=== PATIENT | female | born 1965 | race Caucasian/White ===

== ENCOUNTER 2016-07-26 11:32 | Emergency (ER) | payer MEDICARE, OTHER ==
[~2016-07-26] VITALS: Ht 170.2 cm; Wt 85.7 kg
[2016-07-26 11:56] VITALS: BP 155/86; PULSE 82; RESP 16; TEMP 99.1; O2SAT 98
[2016-07-26 12:01] LABS: BLOOD, URINE LARGE (NEG); KETONE, URINE TRACE mg/dL (NEG); NITRITE,URINE NEG (NEG)
[2016-07-26 12:08] LABS: GLUCOSE,URINE 1000 OR GREATER mg/dL (NEG)
--- NOTE | 2016-07-26 12:09 | PD ---
HPI Chief Complaint: Complaint Time Seen by Provider: 12:05 Travel History International Travel<30 days: No Contact w/Intl Traveler<30days: No Traveled to known affect area: No History of Present Illness HPI 51-year-old female presents to the emergency department for evaluation of burning with urination, urinary urgency and hematuria for one day. Patient states that she feels as though she may have a urinary tract infection, has had a UTI in the past with similar symptoms. She denies any fever, chills, nausea, vomiting, abdominal pain, back pain, vaginal discharge. She is status post hysterectomy. No other complaints. [facility] Past Medical History Medical History: Denies Significant Hx ?: Not Past Surgical History Hysterectomy: Yes Social History Alcohol Use: No Tobacco Use: Yes Substance Use: Yes (marijuana) Allergies-Medications (Allergen,Severity, Reaction): Coded Allergies: Latex (Verified Allergy, Severe, RASH, 07/26/16) Reported Meds & Prescriptions Reported Meds & Active Scripts Active Keflex (Cephalexin) 500 Mg Cap 500 Mg PO Q12H 7 Days Review of Systems Except as stated in HPI: all other systems reviewed are Neg Physical Exam Narrative GENERAL: Well-nourished and well-developed pleasant patient in no acute distress who is nontoxic appearing. SKIN: Warm and dry. HEAD: Normocephalic and atraumatic. EYES: No injection, drainage, or hyphema noted. PERRLA. EOMI. ENT: No nasal drainage noted. Oropharynx is clear. NECK: Supple and the trachea is midline. CARDIOVASCULAR: Regular rate and rhythm. RESPIRATORY: Breath sounds are equal bilaterally with no accessory muscle use, wheezing, rhonchi, or crackles. GASTROINTESTINAL: Abdomen is soft, non-tender, and nondistended. MUSCULOSKELETAL: No obvious deformities, swelling, cyanosis, or ecchymosis is present throughout the upper and lower extremities. Patient has full range of motion without any signs of neurovascular compromise. BACK: Negative CVA tenderness. NEUROLOGICAL: Awake, alert, and oriented. Normal speech and gait. Cranial nerves are grossly intact. Data Data Last Documented VS Vital Signs Date Time Temp Pulse Resp B/P Pulse Ox O2 Delivery O2 Flow Rate FiO2 07/26/16 11:56 99.1 82 16 155/86 98 Orders Urinalysis - C+S If Indicated (07/26/16 11:33) Urine Culture (07/26/16 11:56) Blood Glucose (07/26/16 12:37) Labs Laboratory Tests Test 07/26/16 11:56 Urine Collection Type CLEAN CATCH Urine Color YELLOW Urine Turbidity CLEAR Urine pH 5.0 Urine Specific [place] 1.030 Urine Protein NEG mg/dL Urine Glucose (UA) 1000 OR GREATER mg/dL Urine Ketones TRACE mg/dL Urine Occult Blood LARGE Urine Nitrite NEG Urine Bilirubin NEG Urine Leukocyte Esterase NEG Urine RBC 100-200 /hpf Urine WBC 20-24 /hpf Urine Squamous Epithelial > 8 /hpf Cells Microscopic Urinalysis Comment CULTURE INDICATED Urine Collection Time 11:56 [facility] Medical Decision Making Medical Screen Exam Complete: Yes Emergency Medical Condition: Yes Differential Diagnosis Cystitis versus urethritis versus dysuria Narrative Course 51-year-old female presents to the emergency department for evaluation of burning with urination and hematuria that began this morning. Patient is afebrile, vital signs are stable. Abdominal examination is benign. Urinalysis has been ordered and is pending. Urinalysis shows 1000 glucosuria, trace ketones, large occult blood, 102 100 red blood cells, 20-24 white blood cells, 8 squamous cell. Fingerstick glucose is 315. Discussed all of these results with the patient. She admits that she used to be on medication for diabetes but over the past year she has been controlling her sugar with diet. States she has been eating poorly over the past 4 days because she has been traveling and this is what is causing her sugar to be elevated. The patient took herself off of all of her diabetes medications and is not interested in taking any medication to control her diabetes. We'll treat her with Keflex for cystitis. Stressed the importance of outpatient follow-up with a PCP. Discussed when to return to the emergency Department. Patient verbalizes understanding and agreement with treatment plan. I discussed the case with my attending physician Dr. Harden who is aware of the patients history, physical examination findings, and treatment plan. Diagnosis Primary Impression: Cystitis Additional Impressions: Hyperglycemia Noncompliance with diabetes treatment Patient Instructions: General Instructions Additional Instructions: Drink plenty of water. Take medication as prescribed with food and a full glass of water. Follow-up with your Primary Care Physician. Return to the ED for any acute worsening of symptoms. Med/Other Pt SpecificInfo: Prescription(s) given Scripts Cephalexin (Keflex)500 Mg [id number] Mg PO Q12H 7 Days Ref 0 Prov:Nito Harden MD 07/26/16 Disposition: 01 DISCHARGE HOME Condition: Stable Kady Kim Jul 26, 2016 12:09
[2016-07-26 12:19] LABS: COMMENT (UR) CULTURE INDICATED; CULTURE IF INDICATED CULTURE INDICATED; METHOD OF COLLECTION CLEAN CATCH; RBC, URINE 100-200 /hpf (0-3); SQUAMOUS EPITHELIAL CELL URINE > 8 /hpf (0-5); URINE COLOR YELLOW (YELLW/STRAW)
[2016-07-26] MEDS ORDERED: CEPH-460 PO (12:54)
== END 2016-07-26 13:10 | disposition home or self-care (01) ==
LOC: PHEFT 11:32
DX: N30.90 Cystitis, unspecified without hematuria (principal); Z91.14 Patient's other noncompliance with medication regimen; E11.65 Type 2 diabetes mellitus with hyperglycemia
CPT/HCPCS: 81001; 87086; 99283

== ENCOUNTER 2016-10-02 12:47 | Emergency (ER) | payer MEDICARE, OTHER ==
[~2016-10-02] VITALS: Ht 170.2 cm; Wt 84.0 kg
[~2016-10-02 12:47] MED LIST: CEPH-460 PO
[2016-10-02 12:51] VITALS: BP 132/94; PULSE 100; RESP 16; TEMP 98.4; O2SAT 96
--- NOTE | 2016-10-02 13:05 | PD ---
HPI Chief Complaint: Skin Problem Time Seen by Provider: 13:00 Travel History International Travel<30 days: No Contact w/Intl Traveler<30days: No Traveled to known affect area: No History of Present Illness HPI 50-year-old female comes in with 2 day history of right-sided lower lateral thoracic pain with rash. Patient recently was exposed to shingles and her daughter approximately month ago. Patient denies significant fever, difficulty breathing, cough, or other symptoms. She is allergic to latex. Pain is described as a burning sharp discomfort which currently is a 7/10. She has no known medication allergies. PFSH Past Medical History Diabetes: Yes Patient Takes Glucophage: No Immunizations Current: Yes Tetanus Vaccination: > 5 Years Influenza Vaccination: Yes ?: Not Past Surgical History Genitourinary Surgery: Yes (BLADDER TUCK) Hysterectomy: Yes Neurologic Surgery: Yes (NERVE BLOCK LOWER BACK) Other Surgery: Yes (BENIGN LUMP LEFT BREAST REMOVED, SCAR REVISION RIGHT FACE) Social History Alcohol Use: No Tobacco Use: Yes (1/2 PPD) Substance Use: Yes (marijuana) Allergies-Medications (Allergen,Severity, Reaction): Coded Allergies: Latex (Verified Allergy, Severe, RASH, 10/02/16) Reported Meds & Prescriptions Reported Meds & Active Scripts Active Gabapentin 100 Mg Cap 100 Mg PO TID Valtrex (Valacyclovir HCl) 1 Gm Tab 1,000 Mg PO BID Review of Systems Except as stated in HPI: all other systems reviewed are Neg General / Constitutional: Positive: Chills, No: Fever Eyes: No: Visual changes HENT: No: Headaches Cardiovascular: No: Chest Pain or Discomfort Respiratory: No: Shortness of Breath Gastrointestinal: No: Abdominal Pain Genitourinary: No: Dysuria Musculoskeletal: No: Pain Skin: No Rash Neurologic: No: Weakness Psychiatric: No: Depression Endocrine: No: Polydipsia Hematologic/Lymphatic: No: Easy Bruising Physical Exam Narrative GENERAL: Patient appears in mild distress. SKIN: Warm and dry. Normal color. Normal turgor. Patient is several erythematous raised pustules to the right anterior lateral thorax at the T8 9 level. HEAD: Atraumatic. Normocephalic. EYES: Pupils equal and round. No scleral icterus. No injection or drainage. ENT: No nasal bleeding or discharge. Mucous membranes pink and moist. Pharynx is normal. NECK: Trachea midline. No JVD. Supple nontender. CARDIOVASCULAR: Regular rate and rhythm. RESPIRATORY: No accessory muscle use. Clear to auscultation. Breath sounds equal bilaterally. GASTROINTESTINAL: Abdomen soft, non-tender, nondistended. Hepatic and splenic margins not palpable. MUSCULOSKELETAL: Extremities without clubbing, cyanosis, or edema. No obvious deformities. NEUROLOGICAL: Awake and alert. No obvious cranial nerve deficits. Motor grossly within normal limits. Five out of 5 muscle strength in the arms and legs. Normal speech. PSYCHIATRIC: Appropriate mood and affect; insight and judgment normal. Data Data Last Documented VS Vital Signs Date Time Temp Pulse Resp B/P Pulse Ox O2 Delivery O2 Flow Rate FiO2 10/02/16 12:51 98.4 100 16 132/94 96 MDM Medical Decision Making Medical Screen Exam Complete: Yes Emergency Medical Condition: Yes Differential Diagnosis Rash. Thoracic wall pain. Shingles. Narrative Course Patient is medically stable at time of exam. History and physical suggest shingles. Patient is given Valtrex 1000 milligrams twice a day 7 days. Patient started on gabapentin 100 mg 3 times a day #90. Patient can take Tylenol as well. Patient follow-up with primary care physician or return to emergency department as needed. Diagnosis Primary Impression: Shingles outbreak Qualified Code: B02.9 - Herpes zoster without complication Referrals: Primary Care Physician Patient Instructions: General Instructions, Shingles (DC) Additional Instructions: History and physical suggest shingles. Patient is given Valtrex 1000 milligrams twice a day 7 days. Patient started on gabapentin 100 mg 3 times a day #90. Patient can take Tylenol as well. Patient follow-up with primary care physician or return to emergency department as needed. Med/Other Pt SpecificInfo: Prescription(s) given Scripts Gabapentin 100 Mg [id number] Mg PO TID #90 CAP Ref 0 Prov:Mona Leal MD 10/02/16 Valacyclovir (Valtrex)1 Gm Tab1,000 Mg PO BID #14 TAB Ref 0 Prov:Mona Leal MD 10/02/16 Disposition: 01 DISCHARGE HOME Condition: Stable Arias Rodriguez Oct 02, 2016 13:05
[2016-10-02] MEDS ORDERED: GABA100C4 PO (13:06)
[2016-10-02] MEDS ORDERED: VALT1TAB PO (13:06)
== END 2016-10-02 13:27 | disposition home or self-care (01) ==
LOC: PHEFT 12:47
DX: B02.9 Zoster without complications (principal); E11.9 Type 2 diabetes mellitus without complications; F17.210 Nicotine dependence, cigarettes, uncomplicated
CPT/HCPCS: 99283